=== PATIENT | male | born 1995 ===

== ENCOUNTER 2017-04-09 01:40 | Emergency (ER) | payer BC ==
[2017-04-09 01:58] VITALS: BP 113/78; PULSE 98; RESP 17; TEMP 98; O2SAT 99
[2017-04-09] MEDS ORDERED: Sodium Chloride 0.9% 1,000 ML IV STA (02:19)
--- NOTE | 2017-04-09 02:22 | ED PDOC ---
HPI: Abdomen Time Seen by Provider: 04/09/17 02:20 Chief Complaint (Nursing): Abdominal Pain Chief Complaint (Provider): ABDOMINAL PAIN/VOMITING History Per: Patient (22 Y/O MALE HERE FOR EVALUATION OF ABDOMINAL PAIN/ VOMITING TODAY X 5 HOURS. DENIES ANY FEVERS/CHILLS. DENIES ANY URI/COUGH. NOTES SORE THROAT. DENIES ANY ETOH TODAY. NO H/O ABD SURGERIES. NO NEW MEDICATIONS.) Past Medical History Reviewed: Historical Data, Nursing Documentation, Vital Signs Vital Signs: Last Vital Signs Temp 98.0 F 04/09/17 01:55 Pulse 98 H 04/09/17 01:55 Resp 17 04/09/17 01:55 BP 113/78 04/09/17 01:55 Pulse Ox 99 04/09/17 02:21 - Family History Family History: States: No Known Family Hx - Home Medications Home Medications: Ambulatory Orders Medication Instructions Recorded Famotidine [Pepcid] 20 mg PO BID #10 tab 04/09/17 Ondansetron ODT [Zofran ODT] 4 mg PO Q8 PRN #3 odt 04/09/17 - Allergies Allergies/Adverse Reactions: Allergies Allergy/AdvReac Type Severity Reaction Status Date / Time apple Allergy Mild RASH Verified 04/09/17 01:58 Review of Systems ROS Statement: Except As Marked, All Systems Reviewed And Found Negative Physical Exam - Reviewed Nursing Documentation Reviewed: Yes Vital Signs Reviewed: Yes - Physical Exam Appears: Positive for: Well, Non-toxic, No Acute Distress Head Exam: Positive for: ATRAUMATIC, NORMAL INSPECTION, NORMOCEPHALIC Skin: Positive for: Normal Color, Warm, DRY Eye Exam: Positive for: EOMI, Normal appearance, PERRL ENT: Positive for: Normal ENT Inspection Neck: Positive for: Normal, Painless ROM Cardiovascular/Chest: Positive for: Regular Rate, Rhythm Respiratory: Positive for: CNT, Normal Breath Sounds Gastrointestinal/Abdominal: Positive for: Normal Exam, Bowel Sounds, Soft, Tenderness (EPIGASTRIC TENDERNESS) Back: Positive for: Normal Inspection Extremity: Positive for: Normal ROM Neurologic/Psych: Positive for: Alert, Oriented - Laboratory Results Result Diagrams: 04/09/17 03:01 04/09/17 03:01 - ECG O2 Sat by Pulse Oximetry: 99 - Progress ED Course And Treament: PEPCID 20 MG IV X DOSE ZOFRAN 4 MG IV X 1 DOSE NS 1 LITER WIDE OPEN Disposition - Clinical Impression Clinical Impression: Gastritis - Patient ED Disposition Is Patient to be Admitted: No - Disposition Referrals: [facility] [Outside] Disposition: Routine/Home Disposition Time: 04:12 Condition: FAIR Prescriptions: Famotidine [Pepcid] 20 mg PO BID #10 tab Ondansetron ODT [Zofran ODT] 4 mg PO Q8 PRN #3 odt PRN Reason: Nausea/Vomiting Instructions: Gastritis (DC), Diet for Ulcers and Gastritis (ED) Forms: [facility] ([place]), [facility] ED School/Work Excuse
[2017-04-09 03:09] LABS: BASO % 0.2 % (0.0-2.0); EOS # 0.1 K/uL (0.0-0.7); EOS % 0.7 % (0.0-4.0); LYMPH # 0.8 K/uL (1.0-4.3); LYMPH % 6.8 % (20.0-40.0); MEAN CELL VOLUME 91.6 fl (80.0-94.0); MEAN CORPUSCULAR HEMOGLOBIN 30.8 pg (27.0-31.0); MEAN CORPUSCULAR HGB CONC 33.6 g/dL (33.0-37.0); MEAN PLATELET VOLUME 7.8 fl (7.2-11.7); MONO # 0.5 K/uL (0.0-0.8); MONO % 4.5 % (0.0-10.0); NEUT % 87.8 % (50.0-75.0); PLATELET COUNT 249 K/uL (130-400); RED CELL DISTRIBUTION WIDTH 12.7 % (11.5-14.5); WHITE BLOOD COUNT 11.4 K/uL (4.8-10.8)
[2017-04-09 03:20] LABS: ALB/GLOB RATIO 1.4 (1.0-2.1); ALKALINE PHOSPHATASE 48 U/L (38-126); ALT/SGPT 67 U/L (21-72); AST/SGOT 53 U/L (17-59); BILIRUBIN,TOTAL 1.2 mg/dl (0.2-1.3); BLOOD UREA NITROGEN 15 mg/dl (9-20); CALCIUM 9.7 mg/dL (8.4-10.2); CARBON DIOXIDE 27 mmol/L (22-30); CHLORIDE 102 mmol/L (98-107); GFR AFRICAN-AMERICAN > 60; GLUCOSE,RANDOM 101 mg/dL (75-110); POTASSIUM 3.7 MMOL/L (3.6-5.0); SODIUM 141 mmol/l (132-148); TOTAL PROTEIN 8.7 G/DL (6.3-8.2)
[2017-04-09 05:02] LABS: NEUTROPHIL 86 % (42-75); REACTIVE LYMPHOCYTES 1 % (0-0); TOTAL CELLS COUNTED 100
[2017-04-09 05:03] LABS: LARGE PLATELETS PRESENT
== END 2017-04-09 04:24 | disposition home or self-care (01) ==
LOC: H.ER 01:40
DX: K29.70 Gastritis, unspecified, without bleeding (principal)
CPT/HCPCS: 80053; 85025; 87070; 87430; 87804; 96360; 99282; J7040